=== PATIENT | female | born 1945 | race Asian ===

== ENCOUNTER 2020-05-07 16:41 | Emergency (ER) | payer MEDICARE, MEDICAID ==
[~2020-05-07] VITALS: Ht 157.5 cm; Wt 59.0 kg
[2020-05-07 16:58] VITALS: BP 169/89
--- NOTE | 2020-05-07 16:58 | NUR ---
ED Nurse Note: Pt from [facility] and was brought in by [facility] due to dizziness x 3 days. Denies CP or vomiting. BP elevation of 160 systolic but pt was unable to take her BP medication today. AAO x4, follows commands with non labored breathing. ambulates with assistance due to dizziness.
[2020-05-07] MEDS ORDERED: Metoclopramide 10mg/2ml Inj IVP ONE (17:00)
[2020-05-07] MEDS ORDERED: DiphenhydrAMINE 50mg/ml Inj IVP ONE (17:00)
[2020-05-07 17:19] LABS: BASOPHILS % (AUTO) 0.5 % (0.0-2.0); HEMATOCRIT 39.9 % (37.0-47.0); HEMOGLOBIN 13.5 G/DL (12.0-16.0); LYMPHOCYTES % (AUTO) 13.9 % (20.0-45.0); MEAN CORPUSCULAR VOLUME 85 FL (80-99); NEUTROPHILS % (AUTO) 83.6 % (45.0-75.0); PLATELET COUNT 218 K/UL (150-450); RED BLOOD COUNT 4.72 M/UL (4.20-5.40); RED CELL DISTRIBUTION WIDTH 11.8 % (11.6-14.8); WHITE BLOOD COUNT 11.1 K/UL (4.8-10.8)
[2020-05-07 17:28] LABS: ANION GAP 15 mmol/L (5-15); BLOOD UREA NITROGEN 31 mg/dL (7-18); CALCIUM 9.6 MG/DL (8.5-10.1); CARBON DIOXIDE 22 MMOL/L (21-32); CHLORIDE 101 MMOL/L (98-107); CREATININE 0.9 MG/DL (0.55-1.30); INR 0.9 (0.9-1.1); POTASSIUM 4.3 MMOL/L (3.5-5.1); SODIUM 137 MMOL/L (136-145)
[2020-05-07 17:28] LABS: APPEARANCE,URINE CLEAR; BILIRUBIN, URINE NEGATIVE (NEGATIVE); COLOR,URINE PALE YELLOW; GLUCOSE, URINE (UA) 4+ (NEGATIVE); KETONES,URINE 1+ (NEGATIVE); LEUKOCYTE ESTERASE ,URINE NEGATIVE (NEGATIVE); NITRITE,URINE NEGATIVE (NEGATIVE); PH,URINE 5 (4.5-8.0); PROTEIN,URINE 4+ (NEGATIVE); UROBILINOGEN,URINE NORMAL MG/DL (0.0-1.0)
--- NOTE | 2020-05-07 17:30 | NUR ---
ED Nurse Note: Blood and urine collected then sent.
[2020-05-07 17:39] LABS: ALANINE AMINOTRANSFERASE 32 U/L (12-78); ALKALINE PHOSPHATASE 59 U/L (46-116); ASPARTATE AMINO TRANSFERASE 28 U/L (15-37); BILIRUBIN,TOTAL 0.7 MG/DL (0.2-1.0); CREATINE KINASE 72 U/L (26-308)
--- NOTE | 2020-05-07 17:45 | Emergency Room Report ---
History of Present Illness General Chief Complaint: Dizziness Source: Patient, EMS Present Illness HPI Patient is brought by EMS. They were called because the patient was complaining about dizziness. This been going on for 2 to 3 days. It is intermittent. She denies any headache. She has a history of hypertension. She has not been compliant with her medication. EMS found the patient had a elevated glucose also in the field. The patient denies any chest pain. She feels ill but denies fevers and chills. She feels nauseated but has not been vomiting. She also denies any diarrhea or dysuria. She denies unilateral or body weakness at this time. There is no sensory changes also. The patient claims she is run out of her medications. No fevers, chills, sore throat, palpitations, diarrhea, dysuria, abdominal pain , shortness of breath, joint pain, rashes, depression, anxiety, visual changes. Allergies: Coded Allergies: No Known Allergies (Unverified , 05/07/20) COVID-19 Screening Contact w/high risk pt: No Recent Travel to affected area: No Experienced COVID-19 symptoms?: No COVID-19 Testing performed [employer]AV[employer] ATTENDANT: No Patient History Past Medical History: see triage record Social History: Denies: smoking, alcohol use, drug use - Placement Social History Narrative Lives with family Reviewed Nursing Documentation: PMH: Agreed; PSxH: Agreed Nursing Documentation-PMH Past Medical History: No History, Except For Hx Hypertension: Yes Hx Diabetes: Yes Review of Systems All Other Systems: negative except mentioned in HPI Physical Exam Vital Signs Date Time Temp Pulse Resp B/P (MAP) Pulse Ox O2 Delivery O2 Flow Rate FiO2 05/07/20 16:48 100 18 169/89 (115) 97 Room Air Sp02 EP Interpretation: reviewed, normal General Appearance: well appearing, no apparent distress, alert, GCS 15, non- toxic Head: normocephalic Eyes: bilateral eye normal inspection, bilateral eye PERRL, bilateral eye EOMI ENT: moist mucus membranes Neck: full range of motion, supple Respiratory: lungs clear, normal breath sounds Cardiovascular #1: regular rate, rhythm, no edema Cardiovascular #2: 2+ radial (R) Gastrointestinal: normal inspection, normal bowel sounds, non tender, no mass, non-distended Genitourinary: no CVA tenderness Musculoskeletal: back normal, normal range of motion, no calf tenderness, gait/ station normal Neurologic: alert, motor strength/tone normal, grain unloader machine III-XII nml as tested, DTRs symmetric, oriented x3, sensory intact, cerebellar normal, speech normal Psychiatric: mood/affect normal Skin: no rash, warm/dry Medical Decision Making Diagnostic Impression: Primary Impression: Vertigo Additional Impressions: Non compliance w medication regimen HTN (hypertension) Qualified Codes: I10 - Essential (primary) hypertension Hyperglycemia ER Course White count minimally elevated. Patient with a history of hypertension presents with dizziness noncompliance. Differential includes vestibular neuritis, central vertigo, hypertensive urgency, acute myocardial infarction, arrhythmia, electrolyte imbalance amongst others. Apparent risk for COVID-19 is slight as the patient does not have symptoms suggestive of active disease. Evaluation with EKG, chest x-ray and labs. Based on her neurologic exam CT of the head is not indicated at this time. Blood pressure is not extremely high however has to be monitored. The patient is placed on a night monitor. As glucose is elevated the patient will receive IV hydration. Patient treated with Reglan and Benadryl. EKG, ST. Biatrial enlargement. Chest x-ray clear. CMP with elevated BUN and glucose. Troponin negative. Patient improved with treatment. Multiple calls to determine current medications. This involved also trying to contact the pharmacy. Finally a family member was able to give us medications and doses. They claim the patient is noncompliant with her medications. Patient ambulatory and states that she feels better after treatment. No ataxia or weakness. Patient stable for outpatient observation and treatment. Laboratory Tests Test 05/07/20 17:00 05/07/20 17:18 White Blood Count 11.1 K/UL (4.8-10.8) H Red Blood Count 4.72 M/UL (4.20-5.40) Hemoglobin 13.5 G/DL (12.0-16.0) Hematocrit 39.9 % (37.0-47.0) Mean Corpuscular Volume 85 FL (80-99) Mean Corpuscular Hemoglobin 28.7 PG (27.0-31.0) Mean Corpuscular Hemoglobin Concent 34.0 G/DL (32.0-36.0) Red Cell Distribution Width 11.8 % (11.6-14.8) Platelet Count 218 K/UL (150-450) Mean Platelet Volume 8.0 FL (6.5-10.1) Neutrophils (%) (Auto) 83.6 % (45.0-75.0) H Lymphocytes (%) (Auto) 13.9 % (20.0-45.0) L Monocytes (%) (Auto) 2.0 % (1.0-10.0) Eosinophils (%) (Auto) 0.0 % (0.0-3.0) Basophils (%) (Auto) 0.5 % (0.0-2.0) Prothrombin Time 10.1 SEC (9.30-11.50) Prothrombin Time INR 0.9 (0.9-1.1) Activated Partial Thromboplast Time 22 SEC (23-33) L Sodium Level 137 MMOL/L (136-145) Potassium Level 4.3 MMOL/L (3.5-5.1) Chloride Level 101 MMOL/L (98-107) Carbon Dioxide Level 22 MMOL/L (21-32) Anion Gap 15 mmol/L (5-15) Blood Urea Nitrogen 31 mg/dL (7-18) H Creatinine 0.9 MG/DL (0.55-1.30) Estimated Glomerular Filtration Rate > 60 mL/min (>60) Glucose Level 263 MG/DL (74-106) H Calcium Level 9.6 MG/DL (8.5-10.1) Total Bilirubin 0.7 MG/DL (0.2-1.0) Aspartate Amino Transferase (AST) 28 U/L (15-37) Alanine Aminotransferase (ALT) 32 U/L (12-78) Alkaline Phosphatase 59 U/L (46-116) Total Creatine Kinase 72 U/L (26-308) Troponin I 0.000 ng/mL (0.000-0.056) C-Reactive Protein, Quantitative < 0.4 mg/dL (0.00-0.90) Pro-B-Type Natriuretic Peptide 50 pg/mL (0-125) Total Protein 8.4 G/DL (6.4-8.2) H Albumin 4.3 G/DL (3.4-5.0) Globulin 4.1 g/dL Urine Color Pale yellow Urine Appearance Clear Urine pH 5 (4.5-8.0) Urine Specific [place] 1.020 (1.005-1.035) Urine Protein 4+ (NEGATIVE) H Urine Glucose (UA) 4+ (NEGATIVE) H Urine Ketones 1+ (NEGATIVE) H Urine Blood Negative (NEGATIVE) Urine Nitrite Negative (NEGATIVE) Urine Bilirubin Negative (NEGATIVE) Urine Urobilinogen Normal MG/DL (0.0-1.0) Urine Leukocyte Esterase Negative (NEGATIVE) Urine RBC 0 /HPF (0 - 2) Urine WBC 0-2 /HPF (0 - 2) Urine Squamous Epithelial Cells Few /LPF (NONE/OCC) Urine Bacteria Few /HPF (NONE) Urine Mucus Moderate /LPF (NONE/OCC) H Urine Yeast Few /HPF (NONE) H EKG Diagnostic Results Rate: normal Rhythm: other - ST ST Segments: no acute changes - Biatrial enlargement Rhythm Strip Diag. Results EP Interpretation: yes Rhythm: no PVC's, no ectopy, other - ST Chest X-Ray Diagnostic Results Chest X-Ray Diagnostic Results : Chest X-Ray Ordered: Yes # of Views/Limited/Complete: 1 View Indication: Other EP Interpretation: Yes Interpretation: no consolidation, no effusion, no pneumothorax, other - COPD Impression: Other Electronically Signed by: Electronically signed by Alejandro Huff MD Last Vital Signs Date Time Temp Pulse Resp B/P (MAP) Pulse Ox O2 Delivery O2 Flow Rate FiO2 05/07/20 22:10 97.9 95 16 150/89 98 Room Air Status: improved Disposition: HOME, SELF-CARE Condition: Improved Scripts Ondansetron Odt* (ZOFRAN ODT*) 4 Mg Tab.rapdis 4 MG BC EVERY 8 HOURS PRN for Nausea & Vomiting, #6 TAB 0 Refills Prov: Alejandro Huff MD 05/07/20 Famotidine* (Pepcid 20mg tablet*) 20 Mg Tablet 20 MG ORAL DAILY, #15 TAB 0 Refills Prov: Alejandro Huff MD 05/07/20 Sitagliptin Phos/Metformin Hcl (JANUMET 50-500 MG TABLET) 1 Each Tablet 1 TAB ORAL DAILY, #15 TAB Prov: Alejandro Huff MD 05/07/20 Glimepiride* (GLIMEPIRIDE*) 1 Mg Tablet 2 MG ORAL BEFORE BREAKFAST, #15 TAB Prov: Alejandro Huff MD 05/07/20 Atorvastatin Calcium* (ATORVASTATIN CALCIUM*) 20 Mg Tablet 20 MG ORAL BEDTIME, #15 TAB Prov: Alejandro Huff MD 05/07/20 Amlodipine Besylate* (AMLODIPINE BESYLATE*) 10 Mg Tablet 10 MG ORAL DAILY, #15 TAB Prov: Alejandro Huff MD 05/07/20 Clonidine Hcl (CLONIDINE HCL) 0.1 Mg Tablet 0.1 MG PO BID, #30 TAB 1 Refill Prov: Alejandro Huff MD 05/07/20 Referrals: NOT CHOSEN IPA/,REFERRING (PCP) Alejandro Huff MD May 07, 2020 17:45
[2020-05-07 17:48] LABS: ALBUMIN 4.3 G/DL (3.4-5.0)
[2020-05-07 19:04] VITALS: BP 166/69
--- NOTE | 2020-05-07 19:05 | NUR ---
ED Nurse Note: Pillows and warm blankets provided. Pt is AAO x4 ,follows commands with no respiratory distress. Will continue to closely monitor.
--- NOTE | 2020-05-07 19:17 | NUR ---
ED Nurse Note: Received report from LUCIUS Martines. Patient reassessed, resting in bed, no acute distress noted.
--- NOTE | 2020-05-07 19:17 | NUR ---
HAND-OFF: Report given to Kenya KAN.
[2020-05-07 19:46] VITALS: BP 164/69
[2020-05-07] MEDS ORDERED: GLIMEPIRIDE1 MG ORAL (21:29)
[2020-05-07] MEDS ORDERED: ONDANSETRON ODT4 MG BC (21:29)
[2020-05-07] MEDS ORDERED: CLONIDINE HCL0.1 MG PO (21:29)
[2020-05-07] MEDS ORDERED: AMLODIPINE BESY10 MG ORAL (21:29)
[2020-05-07] MEDS ORDERED: ATORVASTATIN CA20 MG ORAL (21:29)
[2020-05-07] MEDS ORDERED: JANUMET 50-5001 EACH ORAL (21:29)
[2020-05-07] MEDS ORDERED: FAMOTIDINE20 MG ORAL (21:29)
[2020-05-07] MEDS ORDERED: LOSARTAN POTAS100 MG ORAL (22:03)
[2020-05-07 22:10] VITALS: BP 150/89
--- NOTE | 2020-05-07 22:10 | NUR ---
ER DISCHARGE NOTE: Patient is cleared to be discharged per ERMD, pt is aox4, on room air, with stable vital signs. pt and son were given dc and prescription instructions, pt and son were able to verbalize understanding, pt id band and iv site removed intact without complications. pt is able to ambulate with steady gait. pt took all belongings. pt stable upon discharge accompanied by son.
--- NOTE | 2020-05-08 15:44 | Diagnostic Imaging Report ---
Indication: Chest pain Technique: One view of the chest Comparison: none Findings: The heart size is upper limits of normal. The aorta is tortuous and calcified. Impression: No acute process
== END 2020-05-07 22:10 | disposition home or self-care (01) ==
LOC: EDBD 16:41 → EMR 17:07
DX: R42 Dizziness and giddiness (principal); I10 Essential (primary) hypertension; Z91.15 Patient's noncompliance with renal dialysis; E11.65 Type 2 diabetes mellitus with hyperglycemia; R11.0 Nausea; J44.9 Chronic obstructive pulmonary disease, unspecified; R07.9 Chest pain, unspecified
CPT/HCPCS: 36415; 71045; 80053; 81003; 82550; 83880; 84484; 85025; 85610; 85730; 86140; 87086; 93005; 96361; 96374; 96375; 99284; J1200; J2765; J7030; J7040